=== PATIENT | female | born 1985 | race Caucasian/White ===

== ENCOUNTER 2017-08-30 19:58 | Outpatient (CLI) | payer OTHER ==
[2017-08-30] MEDS ORDERED: PRENATAL ONE T1 EACH PO (20:29)
== END 2017-08-31 14:25 | disposition home or self-care (01) ==
LOC: OBS/DEL 19:58
DX: O60.02 Preterm labor without delivery, second trimester (principal); Z3A.24 24 weeks gestation of pregnancy

== ENCOUNTER 2017-12-09 10:32 | Inpatient (IN) | payer OTHER ==
[~2017-12-09] VITALS: Ht 160 cm; Wt 62.1 kg
[~2017-12-09 10:32] MED LIST: PRENATAL ONE T1 EACH PO
== END 2017-12-11 16:06 | disposition home or self-care (01) | DRG 775 ==
LOC: OB/GYN 10:32 → LDR 10:32 → OB/GYN 12:50
PROC: 0UQGXZZ Repair Vagina, External Approach (ICD-10-PCS; principal; 2017-12-09)
PROC: 10E0XZZ Delivery of Products of Conception, External Approach (ICD-10-PCS; 2017-12-09)
PROC: 4A1HXCZ Monitoring of Products of Conception, Cardiac Rate, External Approach (ICD-10-PCS; 2017-12-09)
PROC: 4A033R1 Measurement of Arterial Saturation, Peripheral, Percutaneous Approach (ICD-10-PCS; 2017-12-09)
DX: O71.4 Obstetric high vaginal laceration alone (principal); Z3A.39 39 weeks gestation of pregnancy; Z37.0 Single live birth